=== PATIENT | female | born 1985 | race Caucasian/White ===

== ENCOUNTER → 2018-10-01 09:44 | Outpatient (CLI) | payer OTHER, SELFPAY ==
--- NOTE | 2018-10-01 | DI.MRI.S_ITS ---
PROCEDURE: MR SHOULDER RT WO CON INDICATIONS: RIGHT SHOULDER PAIN/ ELEVATED LFTS TECHNIQUE: Noncontrast oblique coronal T2 fast spin echo with fat saturation, oblique sagittal T1 spin echo and T2 fast spin echo with fat saturation, axial T1 spin echo and T2 fast spin echo with fat saturation through the shoulder. COMPARISON: None. FINDINGS: Image quality: Diagnostic. Rotator cuff: There is no full-thickness or high-grade partial-thickness tear of the rotator cuff. However, there is a least a moderate grade articular surface partial thickness tear involving the footprint of the anterior distal supraspinatus tendon near the level of the rotator interval. Mild supraspinatus and infraspinatus tendinopathy is present. The subscapularis and teres minor tendons are intact. There is no significant atrophy of the rotator cuff muscles. Bones and bursae: There is no acute fracture or dislocation. No suspicious osseous lesions are evident. There is no marrow edema identified involving the greater tuberosity of the humeral head. No significant degenerative changes of the glenohumeral joint are present. No significant degenerative changes of the acromioclavicular joint are present. However, there is downsloping of the lateral acromion. A moderate amount of fluid is seen within the subacromial subdeltoid bursa. No significant glenohumeral joint effusion is evident. Capsule and soft tissues: In the absence of intra-articular contrast, the labrum and glenohumeral ligaments appear intact. The long head of the biceps tendon demonstrates normal location and morphology. The rotator interval appears normal, without fibrosis. The coracohumeral ligament is normal in thickness. IMPRESSION: 1. Moderate grade articular surface partial thickness tear at the footprint of the anterior distal supraspinatus tendon with corresponding tendinopathy. 2. Mild infraspinatus tendinopathy. 3. Downsloping of the lateral acromion with a moderate amount of fluid contained within the subacromial subdeltoid bursa. Please correlate clinically for possible subacromial impingement and/or subacromial subdeltoid bursitis. Dictated by: Tejas Maurer M.D. on 10/01/2018 at 10:45 Approved by: Tejas Maurer M.D. on 10/01/2018 at 11:00
--- NOTE | 2018-10-01 | DI.US.S_ITS ---
PROCEDURE: US ABDOMEN COMPLETE INDICATIONS: ELEVATED LFTS TECHNIQUE: Real-time scanning was performed of the abdominal and retroperitoneal organs, with image documentation. COMPARISON: [facility], US, ABDOMEN COMPLETE, 09/02/2011, 11:33. FINDINGS: Liver: Liver is normal in size and homogeneous in echotexture. Gallbladder: Within normal limits. No sonographic Christiansen sign. Biliary ducts: Intrahepatic bile ducts are non-dilated. Extrahepatic bile duct caliber measures 3-4 mm. Normal is 6-7 mm or less in diameter, or 10 mm or less post-cholecystectomy. Pancreas: Visualized portions of the pancreas are sonographically normal. Spleen: Spleen is normal in size and homogeneous in echotexture. Kidneys: Kidneys are normal in size and echotexture. Right kidney measures 12.1 cm long; left kidney measures 11.7 cm long. No hydronephrosis or nephrolithiasis. No solid masses. Aorta: Visualized aorta is normal in caliber at less than 3 cm. Iliacs: Proximal common iliac arteries are normal in caliber at less than 2.5 cm. IVC: Intrahepatic inferior vena cava is patent. Miscellaneous: No free abdominal fluid. IMPRESSION: Negative examination as above. Normal appearance of the gallbladder. Dictated by: Eran Garrett M.D. on 10/01/2018 at 11:29 Approved by: Eran Garrett M.D. on 10/01/2018 at 11:30
== END ==
PROVIDERS: Family Provider Family Medicine; PCP Family Medicine; Visit Provider Family Medicine
DX: M25.511 Pain in right shoulder (principal); R79.89 Other specified abnormal findings of blood chemistry; M75.111 Incomplete rotator cuff tear or rupture of right shoulder, not specified as traumatic
CPT/HCPCS: 73221; 76700

== ENCOUNTER → 2019-05-04 08:50 | Outpatient (CLI) | payer OTHER, SELFPAY ==
--- NOTE | 2019-05-04 | DI.MRI.S_ITS ---
PROCEDURE: MR HEAD/BRAIN WO CON INDICATIONS: Migraine without aura, not intractable, TECHNIQUE: Noncontrast axial T1 spin echo, axial T2 fast spin echo, sagittal and axial FLAIR, coronal T2 fast spin echo, axial gradient echo, axial diffusion and ADC through the brain. COMPARISON: None. FINDINGS: Image quality: Excellent. CSF Spaces: Basal cisterns are patent. No extra-axial fluid collections. Ventricles are normal in size and shape. Brain: No intracranial masses or hemorrhage. Julien/white matter interface is normal. Brainstem appears normal. Diffusion-weighted images demonstrate no acute ischemic insult. No chronic ischemic insults. Normal intravascular flow voids are present. Skull and face: Calvarium has normal marrow signal. Orbits appear normal. Sinuses: Left maxillary sinus mucoperiosteal thickening. Sinuses and mastoids are otherwise clear. IMPRESSION: 1. Chronic left maxillary sinusitis. 2. Otherwise unremarkable brain MRI. Normal brain parenchyma. No evidence acute stroke, hemorrhage, or mass. Dictated by: Chris Saha M.D. on 05/06/2019 at 8:46 Approved by: Chris Saha M.D. on 05/06/2019 at 8:48
== END ==
PROVIDERS: PCP Family Medicine; Visit Provider Family Medicine
DX: G43.009 Migraine without aura, not intractable, without status migrainosus (principal); J32.0 Chronic maxillary sinusitis
CPT/HCPCS: 70551

== ENCOUNTER → 2019-10-17 09:31 | Outpatient (CLI) | payer OTHER, SELFPAY ==
--- NOTE | 2019-11-04 10:31 | PM.CARDMON.1 ---
Corporate Officer Report Referral & Results Date Patient Seen: 10/17/19 Requesting provider: Princess Stein Indication: Palpitations Duration of monitoring (days): 8 Diary information: There were 9 patient triggered events and 4 patient diary entries. Triggered events were associated variously with sinus rhythm, PVCs and PACs Diary events were associated with sinus rhythm and PVCs Data: Minimum heart rate was 52 beats per minute at 06:01 on 10/22/2019 Maximum heart rate was 178 beats per minute at 15:40 on 10/20/2019 Less than 1% of identified beats or either ventricular or supraventricular ectopic in origin Impression: Patient with rare PAC and PVCs that possibly are connect with patient's sensation of palpitations No other more serious dysrhythmias identified on this study
== END ==
PROVIDERS: PCP Family Medicine; Referring Provider Family Medicine; Visit Provider Family Medicine
DX: R00.2 Palpitations (principal)
CPT/HCPCS: 0296T; 0298T